=== PATIENT | female | born 1995 | race Caucasian/White ===

== ENCOUNTER 2016-03-27 11:47 | Emergency (ER) | payer OTHER, BC ==
[~2016-03-27] VITALS: Ht 157.5 cm; Wt 48.9 kg
[2016-03-27 11:51] VITALS: TEMP 36.8; O2SAT 100; Ht 157.5 cm; Wt 48.9 kg
[2016-03-27] MEDS ORDERED: BCPILLS PO (12:02)
[2016-03-27] MEDS ORDERED: DIVA500T3 PO (12:02)
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
[2016-03-27 13:49] VITALS: BP 126/74; PULSE 108
[2016-03-27] MEDS ORDERED: TRAM-10 PO (14:09)
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
== END 2016-03-27 14:15 | disposition home or self-care (01) ==
LOC: C.EDB 11:49 → C.EDD 14:15
DX: S06.0X0A Concussion without loss of consciousness, initial encounter (principal); M54.5 Low back pain; M54.2 Cervicalgia; G40.909 Epilepsy, unspecified, not intractable, without status epilepticus; V43.62XA Car passenger injured in collision with other type car in traffic accident, initial encounter; Y93.89 Activity, other specified; Y92.488 Other paved roadways as the place of occurrence of the external cause; Y99.8 Other external cause status

== ENCOUNTER → 2016-08-06 | Outpatient (CLI) | payer BC, OTHER ==
[~2016-08-06] MED LIST: BCPILLS PO; CIPR-255 PO; DIVA500T3 PO; DIVA500T59 PO; OXYC1TAB3 PO; TRAM-10 PO
--- NOTE | 2016-08-06 14:12 | DIAGNOSTIC IMAGING REPORT ---
LEFT FOOT MIN 3 VIEWS CLINICAL HISTORY: Left flank pain COMPARISON: None. DISCUSSION: No fractures or dislocations are visualized. There are no erosive or destructive changes. The bony mineralization appears normal. IMPRESSION: No bony abnormalities identified. Electronically signed by: Juan Manuel Roman M.D. 08/06/2016 2:11 PM Dictated Date/Time: 08/06/2016 2:10 PM
== END | disposition home or self-care (01) ==
LOC: C.RDSM 13:45
PROVIDERS: ATTEND Internal Medicine
DX: M79.672 Pain in left foot (principal)

== ENCOUNTER 2016-12-27 09:32 | Emergency (ER) | payer BC, OTHER ==
[~2016-12-27] VITALS: Ht 157.5 cm; Wt 45.7 kg
[~2016-12-27 09:32] MED LIST changes: -CIPR-255 PO; -DIVA500T59 PO; -OXYC1TAB3 PO; -TRAM-10 PO
[2016-12-27 09:42] VITALS: TEMP 36.6; Ht 157.5 cm; Wt 45.7 kg
[2016-12-27] MEDS ORDERED: DIVA500T59 PO (10:20)
[2016-12-27] MEDS ORDERED: BCPILLS PO (10:20)
[2016-12-27 10:33] LABS: BASO % 0.2 %; BASO ABS # 0.03 K/uL (0-0.2); COMPLETE YES; EOS % 0.1 %; IG% 0.2 %; LYMPH % 13.1 %; LYMPH ABS # 2.13 K/uL (1.2-3.4); MEAN CELL VOLUME 97.2 fL (80-100); MEAN PLATELET VOLUME 10.8 fL (7.4-10.4); MONO % 5.4 %; PLATELET COUNT 248 K/uL (130-400); RED BLOOD COUNT 4.32 M/uL (4.2-5.4); WHITE BLOOD COUNT 16.24 K/uL (4.8-10.8)
[2016-12-27 10:36] LABS: PREG INTERNAL NEGATIVE QC NEG CLEAR BACKGROUND; PREG INTERNAL POSITIVE QC POS CONTROL LINE
[2016-12-27 10:37] LABS: URINE APPEARANCE TURBID (CLEAR); URINE BILIRUBIN NEG (NEG); URINE COLOR ORANGE; URINE EPITHELIAL CELL AUTO >30 /lpf (0-5); URINE NITRITE NEG (NEG); URINE SPECIFIC GRAVITY 1.015 (1.000-1.030); UROBILINOGEN NEG (NEG); ZZUR CULT IF INDIC CLEAN CATCH YES
[2016-12-27 10:39] LABS: MANUAL MICROSCOPIC REQUIRED? NO; REVIEW REQ? YES
[2016-12-27 10:51] LABS: ALT/SGPT 12 U/L (12-78); AST/SGOT 12 U/L (15-37); BLOOD UREA NITROGEN 6 mg/dl (7-18); BUN/CREATININE RATIO 9.7 (10-20); CALCIUM 9.4 mg/dl (8.5-10.1); CARBON DIOXIDE 27 mmol/L (21-32); CHLORIDE 101 mmol/L (98-107); CREATININE 0.66 mg/dl (0.60-1.20); GLUCOSE 88 mg/dl (70-99); POTASSIUM 3.4 mmol/L (3.5-5.1); SODIUM 137 mmol/L (136-145)
[2016-12-27 10:54] LABS: ALKALINE PHOSPHATASE 71 U/L (45-117)
[2016-12-27] MEDS ORDERED: SODIUM CHLORIDE 0.9% 1000ML 1,000 ML IV SCH (11:00)
[2016-12-27] MEDS ORDERED: NURSING VERBAL MED ORDER ONE (11:00)
--- NOTE | 2016-12-27 11:17 | DIAGNOSTIC IMAGING REPORT ---
ABD/PELVIS WITHOUT FOR STONE HISTORY: 21 years-old Female flank pain, hematuria acute bilateral flank pain. Initial exam. COMPARISON: None available TECHNIQUE: Multiple axial CT images of the abdomen and pelvis were obtained without the use of contrast. A dose lowering technique was used consistent with the principals of ANISH. FINDINGS: The lung bases are generally clear. There is mild mosaic attenuation of the left lung base suggesting atelectasis with some air trapping. No pneumoperitoneum identified. Evaluation of the solid abdominal organs is limited without the use of IV contrast. Within the limitations of the study, the liver, spleen, gallbladder and adrenal glands are unremarkable. It is a nonspecific coarse 4 mm linear calcification of the pancreatic tail seen on image 13 of series 3. Kidneys, ureters and urinary bladder are unremarkable. Uterus and left adnexum are within normal limits. Cystic structure of the right hemipelvis within the region of the right adnexum is seen, 2.6 x 1.4 cm. The abdominal aorta is normal in both course and caliber. No bulky retroperitoneal adenopathy. No bowel obstruction. The appendix is not definitively seen. No secondary evidence of acute appendicitis. Soft tissues are unremarkable. Small posterior disc bulge L5-S1. IMPRESSION: 1. No acute intra-abdominal or intrapelvic abnormality identified, specifically no renal calculi or hydronephrosis. 2. Cystic lesion of the right adnexum, 2.6 x 1.4 cm suggests ovarian follicle. 3. Appendix not definitively seen. No secondary signs of acute appendicitis. The above report was generated using voice recognition software. It may contain grammatical, syntax or spelling errors. Electronically signed by: Ector Benítez M.D. 12/27/2016 11:15 AM Dictated Date/Time: 12/27/2016 11:07 AM
[2016-12-27] MEDS ORDERED: CEFTRIAXONE SOD INJ 1 GM ADDVIAL IV STA (13:15)
[2016-12-27] MEDS ORDERED: CIPR-255 PO ×2 (14:11→14:18)
[2016-12-27] MEDS ORDERED: OXYC1TAB3 PO ×2 (14:11→14:18)
--- NOTE | 2016-12-27 14:44 | Pharmacy Progress Note ---
ED Pharmacist Progress Note Date of Service: Dec 27, 2016. Provider tried to cancel prescriptions for both ciprofloxacin and oxycodone that [facility]. Instead, printed prescriptions for patient to take. I called [facility] - they confirmed they received the ciprofloxacin electronically but denied receiving the oxycodone electronically. I provided verbal consent (as requested by Dr. Padgett) to cancel the prescription for the ciprofloxacin and to also cancel an *electronically* received oxycodone were it to come across in the future.
[2016-12-27 14:47] VITALS: BP 106/69; PULSE 72; O2SAT 99
--- NOTE | 2016-12-27 17:33 | EMERGENCY ROOM VISIT NOTE ---
History Report prepared by Omari: Adam Little Under the Supervision of: Dr. Darrell Padgett M.D. First contact with patient: 09:48 Chief Complaint: URINARY SYMPTOMS Stated Complaint: PAIN ALL NIGHT, MORNING BLOOD IN URINE History of Present Illness The patient is a 21 year old female who presents to the Emergency Room with complaints of waxing and waning bilateral lower back pain beginning two months ago. Her right side is slightly more painful than the left. She rates her pain as a 7/10 in severity. The patient also complains of urinary symptoms. Her urinary symptoms include pain with urination and an episode of hematuria this morning. [facility] her a operator for her symptoms, but no source has been identified. Pt denies LOC, headache, fevers, chills, diaphoresis, visual changes, neck pain, chest pain, breathing difficulties, vomiting, abdominal pain, melena, hematochezia, numbness, weakness, lymphadenopathy, rash, or other complaints. She notes that she feels nauseous, but she always feels nauseous due to a history of post-concussion syndrome. She has a family history of kidney stones. Source of History: patient Onset: Two months ago Position: back (bilateral) Symptom Intensity: 7/10 Timing: waxes/wanes Associated Symptoms: + urinary symptoms (pain with urination and an episode of hematuria) Review of Systems See HPI for pertinent positives and negatives. A total of ten systems were reviewed and were otherwise negative. Past Medical & Surgical Medical Problems: (1) Epilepsy (2) Post concussion syndrome Family History No pertinent family history stated. Social History Smoking Status: Former Smoker Housing Status: lives with roommate Current/Historical Medications Scheduled Control Pills ( Control Pills), 1 TAB PO DAILY Ciprofloxacin Hcl (Cipro), 500 MG PO BID Divalproex Sodium (Depakote), 500 MG PO DAILY Scheduled PRN Oxycodone Ir (Roxicodone Ir), 1-2 TAB PO Q4H PRN for Pain Allergies Coded Allergies: No Known Allergies (Unverified , 12/27/16) Physical Exam Vital Signs Date Time Temp Pulse Resp B/P (MAP) Pulse Ox O2 Delivery O2 Flow Rate FiO2 12/27/16 14:47 72 16 106/69 99 12/27/16 14:19 72 16 106/69 99 Room Air 12/27/16 13:01 60 16 111/68 100 Room Air 12/27/16 09:42 36.6 97 16 100/68 99 Room Air Physical Exam GENERAL: Awake, alert, well-appearing, in no distress HENT: Normocephalic, atraumatic. Oropharynx unremarkable. EYES: Normal conjunctiva. Sclera non-icteric. NECK: Supple. No nuchal rigidity. FROM. No JVD. RESPIRATORY: Clear to auscultation. CARDIAC: Regular rate, normal rhythm. Extremities warm and well perfused. Pulses equal. ABDOMEN: Soft, non-distended. Mild suprapubic tenderness to palpation. No rebound or guarding. No masses. RECTAL: Deferred. MUSCULOSKELETAL: Chest examination reveals no tenderness. The back is symmetrical on inspection without obvious abnormality. Bilateral CVA tenderness to palpation. No joint edema. LOWER EXTREMITIES: Calves are equal size bilaterally and non-tender. No edema. No discoloration. NEURO: Normal sensorium. No sensory or motor deficits noted. SKIN: No rash or jaundice noted. Medical Decision & Procedures ER Provider Diagnostic Interpretation: CT: Radiology results as stated below per my review and radiologist interpretation ABD/PELVIS WITHOUT FOR STONE FINDINGS: The lung bases are generally clear. There is mild mosaic attenuation of the left lung base suggesting atelectasis with some air trapping. No pneumoperitoneum identified. Evaluation of the solid abdominal organs is limited without the use of IV contrast. Within the limitations of the study, the liver, spleen, gallbladder and adrenal glands are unremarkable. It is a nonspecific coarse 4 mm linear calcification of the pancreatic tail seen on image 13 of series 3. Kidneys, ureters and urinary bladder are unremarkable. Uterus and left adnexum are within normal limits. Cystic structure of the right hemipelvis within the region of the right adnexum is seen, 2.6 x 1.4 cm. The abdominal aorta is normal in both course and caliber. No bulky retroperitoneal adenopathy. No bowel obstruction. The appendix is not definitively seen. No secondary evidence of acute appendicitis. Soft tissues are unremarkable. Small posterior disc bulge L5-S1. IMPRESSION: 1. No acute intra-abdominal or intrapelvic abnormality identified, specifically no renal calculi or hydronephrosis. 2. Cystic lesion of the right adnexum, 2.6 x 1.4 cm suggests ovarian follicle. 3. Appendix not definitively seen. No secondary signs of acute appendicitis. The above report was generated using voice recognition software. It may contain grammatical, syntax or spelling errors. Electronically signed by: Ector Benítez M.D. 12/27/2016 11:15 AM Laboratory Results 12/27/16 10:15 Red Blood Count 4.32, Mean Corpuscular Volume 97.2, Mean Corpuscular Hemoglobin 34.0, Mean Corpuscular Hemoglobin Concent 35.0, Mean Platelet Volume 10.8, Neutrophils (%) (Auto) 81.0, Lymphocytes (%) (Auto) 13.1, Monocytes (%) (Auto) 5.4, Eosinophils (%) (Auto) 0.1, Basophils (%) (Auto) 0.2, Neutrophils # (Auto) 13.16, Lymphocytes # (Auto) 2.13, Monocytes # (Auto) 0.87, Eosinophils # (Auto) 0.01, Basophils # (Auto) 0.03 12/27/16 10:15 Test 12/27/16 10:15 White Blood Count 16.24 K/uL (4.8-10.8) Red Blood Count 4.32 M/uL (4.2-5.4) Hemoglobin 14.7 g/dL (12.0-16.0) Hematocrit 42.0 % (37-47) Mean Corpuscular Volume 97.2 fL (80-100) Mean Corpuscular Hemoglobin 34.0 pg (25-34) Mean Corpuscular Hemoglobin Concent 35.0 g/dl (32-36) Platelet Count 248 K/uL (130-400) Mean Platelet Volume 10.8 fL (7.4-10.4) Neutrophils (%) (Auto) 81.0 % Lymphocytes (%) (Auto) 13.1 % Monocytes (%) (Auto) 5.4 % Eosinophils (%) (Auto) 0.1 % Basophils (%) (Auto) 0.2 % Neutrophils # (Auto) 13.16 K/uL (1.4-6.5) Lymphocytes # (Auto) 2.13 K/uL (1.2-3.4) Monocytes # (Auto) 0.87 K/uL (0.11-0.59) Eosinophils # (Auto) 0.01 K/uL (0-0.5) Basophils # (Auto) 0.03 K/uL (0-0.2) RDW Standard Deviation 46.3 fL (36.4-46.3) RDW Coefficient of Variation 13.1 % (11.5-14.5) Immature Granulocyte % (Auto) 0.2 % Immature Granulocyte # (Auto) 0.04 K/uL (0.00-0.02) Urine Color ORANGE Urine Appearance TURBID (CLEAR) Urine pH 6.0 (4.5-7.5) Urine Specific [place] 1.015 (1.000-1.030) Urine Protein 3+ (NEG) Urine Glucose (UA) NEG (NEG) Urine Ketones NEG (NEG) Urine Occult Blood 3+ (NEG) Urine Nitrite NEG (NEG) Urine Bilirubin NEG (NEG) Urine Urobilinogen NEG (NEG) Urine Leukocyte Esterase LARGE (NEG) Urine WBC (Auto) >30 /hpf (0-5) Urine RBC (Auto) >30 /hpf (0-4) Urine Hyaline Casts (Auto) 1-5 /lpf (0-5) Urine Epithelial Cells (Auto) >30 /lpf (0-5) Urine Bacteria (Auto) NEG (NEG) Urine Pathogenic Casts /lpf (0) Urine Test NEG (NEG) Anion Gap 9.0 mmol/L (3-11) Est Creatinine Clear Calc Drug Dose 97.3 ml/min Estimated GFR () 146.4 Estimated GFR (Non- 126.3 BUN/Creatinine Ratio 9.7 (10-20) Calcium Level 9.4 mg/dl (8.5-10.1) Total Bilirubin 0.5 mg/dl (0.2-1) Direct Bilirubin < 0.1 mg/dl (0-0.2) Aspartate Amino Transf (AST/SGOT) 12 U/L (15-37) Alanine Aminotransferase (ALT/SGPT) 12 U/L (12-78) Alkaline Phosphatase 71 U/L (45-117) Total Creatine Kinase 122 U/L (26-192) Total Protein 8.9 gm/dl (6.4-8.2) Albumin 3.9 gm/dl (3.4-5.0) Lipase 73 U/L (73-393) Laboratory results reviewed by me Medications Administered Medications (Trade) Dose Ordered Sig/Adolfo Route Start Time Stop Time Status Last Admin Dose Admin Sodium Chloride 1,000 ml @ 999 mls/hr Q1H1M IV 12/27/16 11:00 12/27/16 12:00 DC 12/27/16 11:07 999 MLS/HR Ceftriaxone Sodium (Rocephin Inj) 1 gm NOW STAT IV 12/27/16 13:15 12/27/16 13:16 DC 12/27/16 13:25 1 GM ED Course 1017: The patient was evaluated in room B11A. A complete history and physical exam was performed. 1100: Ordered Sodium Chloride 1000 ml @ 999 mls/hr IV. 1315: Ordered Rocephin Inj 1 gm IV. I reevaluated the patient. Discussed results and discharge instructions: she verbalized understanding and agreement. The patient is ready for discharge. Medical Decision Triage Nursing notes reviewed. The patient's presentation and history were concerning for flank pain and hematuria. Etiologies such as renal colic, UTI, appendicitis, diverticulitis, mesenteric ischemia, aortic pathology, infections, inflammatory bowel disease, PUD, biliary pathology, as well as others were entertained. The patient was evaluated. Clinically she is doing well but had CVA tenderness. She declined analgesia initially. She had hematuria. The patient had blood work obtained. Urinalysis was performed. She is not . There are signs concerning for UTI. Her white blood cell count came back elevated at 16,000. Patient was hydrated. She was given IV Rocephin. CT did not reveal any evidence of abdominal pathology. Specifically no stones. This seems to be consistent with a pyelonephritis. I discussed conservative management with her. She feels comfortable. She was prescribed oxycodone. She will use Cipro. Cultures are pending. If she worsens in any way she will be back. She will follow-up closely as an outpatient. Because of the ongoing duration of symptoms I did refer her to urology. She states she has had a full BRUSHER examination and no issues were noted. By the evaluation outlined above other emergent etiologies such as those listed in the differential, as well as others, were deemed relatively unlikely. The patient was educated about the findings as listed above. All questions were answered and the patient was pleased with the treatment. Return instructions were outlined and the patient was discharged in stable condition. The patient was referred to urology and her PCP for follow-up for a recheck of the current condition. [place] Drug Monitoring Program Search Results: patient reviewed within database, no issues identified Medication Reconcilliation Current Medication List: was personally reviewed by me Blood Pressure Screening Patient's blood pressure: Normal blood pressure Blood pressure disposition: Did not require urgent referral Impression Primary Impression: Pyelonephritis Additional Impression: Hematuria Scribe Attestation The scribe's documentation has been prepared under my direction and personally reviewed by me in its entirety. I confirm that the note above accurately reflects all work, treatment, procedures, and medical decision making performed by me. Departure Information Dispostion Home / Self-Care Prescriptions Ciprofloxacin Hcl (CIPRO) 500 Mg Tab 500 MG PO BID, #14 TAB Prov: Darrell Padgett MD 12/27/16 Oxycodone Ir (Roxicodone Ir) 5 Mg Tab 1-2 TAB PO Q4H Y for Pain, #12 TAB Prov: Darrell Padgett MD 12/27/16 Referrals Jim Zuñiga D.O. (PCP) Forms HOME CARE DOCUMENTATION FORM, IMPORTANT VISIT INFORMATION Patient Instructions My [facility] Additional Instructions Ciprofloxacin 500mg: Take one pill twice daily for 7 days for your infection. All antibiotics can cause diarrhea. If this occurs and you feel worse or it does not resolve in 1-2 days follow up with your doctor or return to the Emergency Department as this could be signs of serious underlying problems. Any medication can cause an allergic reaction or complication, stop the pills immediately and return to the ER for rash, hives, breathing difficulties, tendon pain, tendon injury, or swelling. Oxycodone Immediate Release (OxyIR) 5mg: Take 1-2 pills every four hours for pain. Avoid alcohol, operating machinery or dangerous equipment, working on ladders or roofs, DRIVING, or situations where being under the influence may be dangerous. It is recommended to use an [id number] stool softener such as Colace, 100mg twice daily while taking this medication to avoid constipation. Ibuprofen(Motrin, Advil) may be used for fever or pain. Use 600mg every six hours as needed. Take with food. Avoid using more than 2400mg in a 24 hour period. Do not use 2400mg per day for more than three consecutive days without physician direction. Prolonged inappropriate use can lead to stomach upset or ulcers. This medication can be taken if you need to drive, work, or perform activities which may be dangerous when taking narcotic pain medication. (AND/OR) Acetaminophen(Tylenol) may be used for fever or pain. Use 650mg every six hours as needed. This medication can be taken if you need to drive, work, or perform activities which may be dangerous when taking narcotic pain medication. Rest and avoid strenuous activity until your symptoms resolve. Drink plenty of fluids. Return to the ER for worsening abdominal or back pain, vomiting, fevers, passing out, or as needed. Follow up with [facility] next week. Call [phone] to arrange a visit. Problem Qualifiers
== END 2016-12-27 14:49 | disposition home or self-care (01) ==
LOC: C.EDB 09:34
DX: N12 Tubulo-interstitial nephritis, not specified as acute or chronic (principal); R31.9 Hematuria, unspecified; N83.201 Unspecified ovarian cyst, right side